=== PATIENT | male | born 1975 | race African-American/Black ===

== ENCOUNTER 2017-05-22 10:56 | Emergency (ER) | payer SELFPAY ==
[~2017-05-22] VITALS: Ht 180.3 cm; Wt 84.0 kg
[2017-05-22 11:07] VITALS: BP 139/86
== END 2017-05-22 12:58 | disposition home or self-care (01) ==
LOC: ER 11:45
DX: G89.29 Other chronic pain (principal); M25.532 Pain in left wrist; M25.531 Pain in right wrist; I10 Essential (primary) hypertension; F17.200 Nicotine dependence, unspecified, uncomplicated; F20.9 Schizophrenia, unspecified; F12.10 Cannabis abuse, uncomplicated; F14.10 Cocaine abuse, uncomplicated; F15.10 Other stimulant abuse, uncomplicated
CPT/HCPCS: 29125; 99283

== ENCOUNTER 2017-06-16 00:32 | Emergency (ER) | payer MEDICAID ==
[~2017-06-16] VITALS: Ht 180.3 cm; Wt 82.0 kg
[2017-06-16] MEDS ORDERED: IBUPROFEN 600MG TABLET PO ONE (08:30)
[2017-06-16] MEDS ORDERED: ONDANSETRON HCL 4MG/2ML VIAL IV STA (10:56)
[2017-06-16] MEDS ORDERED: MORPHINE SULFATE 4 MG/ML CPJ (NOT FOR IM USE) IV STA (10:56)
[2017-06-16] MEDS ORDERED: LORAZEPAM 2MG/ML CPJ IV ONE (11:00)
[2017-06-16] MEDS ORDERED: LIDOCAINE HCL 1% 20ML VIAL (Pyxis) INJ INFIL ONE (11:15)
[2017-06-16] MEDS ORDERED: LIDOCAINE HCL 1% 20ML VIAL (Pyxis) INJ MC ONE (11:15)
[2017-06-16] MEDS ORDERED: TETANUS, DIPHTHERIA, PERTUSSIS VAC/PF 0.5ML (>7YR OLD) IM ONE (11:15)
[2017-06-16] MEDS ORDERED: BACITRACIN ZINC OINT UDPKT TOP ONE (11:15)
[2017-06-16] MEDS ORDERED: PHENYLEPHRINE HCL 10 MG/ML 1ML (IV VIAL) IV NR (11:30)
[2017-06-16] MEDS ORDERED: SODIUM CHLORIDE 0.9% IV NR (12:00)
[2017-06-16] MEDS ORDERED: PHENYLEPHRINE IV NR (12:00)
[2017-06-16] MEDS ORDERED: SODIUM CHLORIDE 0.9% 1,000 ML IV ONE (12:23)
[2017-06-16 15:46] VITALS: BP 124/76
== END 2017-06-16 15:47 | disposition home or self-care (01) ==
LOC: ER 00:32
DX: N48.30 Priapism, unspecified (principal); L03.114 Cellulitis of left upper limb; L03.113 Cellulitis of right upper limb; L03.116 Cellulitis of left lower limb; L03.115 Cellulitis of right lower limb; F17.200 Nicotine dependence, unspecified, uncomplicated; F14.10 Cocaine abuse, uncomplicated; F12.10 Cannabis abuse, uncomplicated; F15.10 Other stimulant abuse, uncomplicated; F10.20 Alcohol dependence, uncomplicated
CPT/HCPCS: 64450; 73130; 73630; 90471; 90715; 96374; 96375; 99284; J2060; J2270; J2370; J2405; J3490; J7030; Z7610; 54220